=== PATIENT | male | born 1930 | race Caucasian/White ===

== ENCOUNTER 2016-08-17 18:44 | Emergency (ER) | payer BC ==
[2016-08-17 18:51] VITALS: BP 128/79; PULSE 99; TEMP 98.4; BMI 22.8
--- NOTE | 2016-08-17 19:15 | PDOC ---
History of Present Illness - General History Source: Patient Exam Limitations: No Limitations - History of Present Illness Initial Comments: 08/17/16 19:35 The patient is a 86 year old male, with a significant past medical history of asthma, prostate cancer, Afib, COPD, enlarged scrotum (long history of scrotal hernia), who presents to the emergency department with redness and swelling to his right elbow. The patient reports that there has been no recent trauma or injury to the area. He states that this redness and swelling began a week ago and that today the area came to a head and he was able to pop it and squeeze out some blood and pus. He reports that the area is not painful, but that he does feel a pressure sensation there. He denies fever, chills, chest pain, shortness of breath, headache and dizziness. He denies nausea, vomit, diarrhea and constipation. Allergies: None Past surgical history: Lung surgery, knee surgery Social history: Former smoker <Yun Coyne - Last Filed: 08/17/16 20:54> <Chrystal Reed - Last Filed: 08/18/16 03:13> - General Chief Complaint: Wound Stated Complaint: RT ELBOW WOUND Time Seen by Provider: 08/17/16 19:13 Past History <Yun Coyne - Last Filed: 08/17/16 20:54> - Past Medical History Asthma: Yes Cancer: Yes (prostate) Cardiac Disorders: Yes (Afib) CVA: No COPD: Yes CHF: No Dementia: No Diabetes: No GI Disorders: No Disorders: No HTN: No Hypercholesterolemia: No Liver Disease: No Seizures: No Thyroid Disease: No - Surgical History Abdominal Surgery: No Appendectomy: No Cardiac Surgery: No Cholecystectomy: No Lung Surgery: Yes Neurologic Surgery: No Orthopedic Surgery: (knee lt) - Immunization History Td Vaccination: No Immunization Up to Date: Yes - Psycho/Social/Smoking Cessation Hx Anxiety: No Suicidal Ideation: No Smoking Status: No Smoking History: Never smoked Have you smoked in the past 12 months: No Number of Cigarettes Smoked Daily: 0 Information on smoking cessation initiated: No Hx Alcohol Use: No Drug/Substance Use Hx: No Substance Use Type: None Hx Substance Use Treatment: No <Chrystal Reed - Last Filed: 08/18/16 03:13> - Past Medical History Allergies/Adverse Reactions: Allergies Allergy/AdvReac Type Severity Reaction Status Date / Time No Known Allergies Allergy Verified 08/17/16 18:45 Home Medications: Ambulatory Orders Cilostazol 100 mg PO DAILY 11/07/13 Famotidine [Pepcid -] 40 mg PO DAILY 11/07/13 Montelukast Na [Singulair -] 10 mg PO HS 11/07/13 Salmeterol/Fluticasone [Advair 250Mcg/50Mcg -] 1 inh PO BID 11/07/13 Simvastatin [Zocor -] 20 mg PO HS 11/07/13 Warfarin Sodium [Coumadin] 5 mg PO DAILY 11/07/13 Digoxin [Lanoxin -] 0.25 mg PO DAILY #30 tablet 11/14/13 Tramadol HCl/Acetaminophen [Ultracet Tablet] 1 each PO TID PRN #20 tablet MDD 3 tabs 12/03/15 Clindamycin HCl [Cleocin HCl] 300 mg PO QID #28 capsule 08/17/16 Diltiazem Cd [Cardizem Cd -] 90 mg PO BID 08/17/16 Review of Systems - Review of Systems Able to Perform ROS?: Yes Comments:: 08/17/16 19:36 CONSTITUTIONAL: Absent: fever, no chills, no fatigue EYES: Absent: visual changes ENT: Absent: ear pain, no sore throat CARDIOVASCULAR: Absent: chest pain, no palpitations RESPIRATORY: Absent: cough, no SOB GI: Absent: abdominal pain, no nausea, no vomiting, no constipation, no diarrhea GENITOURINARY: Absent: dysuria, no frequency, no hematuria MUSCULOSKELETAL: +Right elbow redness and swelling Absent: back pain SKIN: Absent: rash <DorethaYun - Last Filed: 08/17/16 20:54> *Physical Exam - Vital Signs Last Vital Signs Temp Pulse Resp BP Pulse Ox 98.4 F 99 H 20 128/79 95 08/17/16 18:44 08/17/16 18:44 08/17/16 18:44 08/17/16 18:44 08/17/16 18:44 - Physical Exam Comments: 08/17/16 19:36 GENERAL: The patient is awake, alert, and fully oriented, in no acute distress. HEAD: Normal with no signs of trauma. EYES: Pupils equal, round and reactive to light, extraocular movements intact, sclera anicteric, conjunctiva clear with no pallor. ENT: Ears normal, nares patent, oropharynx clear without exudates. Moist mucous membranes. NECK: Normal range of motion, supple without lymphadenopathy, JVD, or masses. LUNGS: Breath sounds equal, clear to auscultation bilaterally. No wheeze/ crackles. HEART: Regular rate and rhythm, normal S1 and S2 without murmur or rub. ABDOMEN: Soft/nontender/nondistended. BS wnl. No guarding or rebound. No palpable masses. No hepatosplenomegaly. EXTREMITIES: +2cm by 3cm firm and mildly tender area of erythema and edema of the proximal right forearm, volar surface. Non fluctuant. No lymphangitic streaking, no pain with passive or active range of motion. NEUROLOGICAL: Cranial nerves II through XII grossly intact. Normal speech, normal gait. PSYCH: Normal mood, normal affect. SKIN: Warm, Dry, normal turgor, no rashes or lesions noted. <Yun Coyne - Last Filed: 08/17/16 20:54> - Vital Signs Last Vital Signs Temp Pulse Resp BP Pulse Ox 98.4 F 99 H 20 128/79 95 08/17/16 18:44 08/17/16 18:44 08/17/16 18:44 08/17/16 18:44 08/17/16 18:44 <Chrystal Reed - Last Filed: 08/18/16 03:13> Procedures - Incision and Drainage I&D Site: Right: Arm Betadine cleansed: No (Hibiclens/ethanol) Anesthesia: 1% Lidocaine Volume(ml): 1 Blade Size: 11 Attempts: 1 Plain Packing: Yes (02/12 in) Complications: none Dressing: Yes (dry sterile gauze) Progress: Area was cleansed with Hibiclens/ethanol and sterilely draped 1.5 mL of 1% lidocaine infiltrated for local anesthesia. 1.5 cm incision made with #11 blade. Small amount of purulent discharge obtained followed by moderate serosanguineous drainage. Sample sent for culture and sensitivity. Forceps use to fully explore subcutaneous abscess cavity. No loculations or persistent pus present. Cavity irrigated with 60 mL of sterile normal saline. Wound packed with quarter inch plain packing. Sterile dry 4 x 4 gauze used for outer dressing. Patient tolerated procedure well. <Chrystal Reed - Last Filed: 08/18/16 03:13> Medical Decision Making - Medical Decision Making Documentation has been prepared under my direction and personally reviewed by me in its entirety. I attest that this documented accurately reflects all work, treatment, procedures and medical decision making performed by me. As noted above, this 86-year-old man with a history of skin abscesses in the past, presents with several day progressive swelling and discomfort in area of his proximal right forearm (volar surface). Patient clearly denies fever/ chills or excessive pain in the area. Today, after the patient attempted self drainage of the lesion, he has had an increase in erythema and edema around the area. Exam as noted. Incision and drainage procedure as noted above. Patient tolerated procedure well. Patient stated adamantly that he would not consent to admission 1 dose of antibiotic administered intravenously was strongly recommended. Patient asked if this was "medically necessary". When told that it was not medically necessary but strongly advised, the patient did not consent to dose of intravenous antibiotic. Patient given first dose of clindamycin 300 mg by mouth here in the emergency room. Clindamycin 300 mg 4 times a day prescribed for one week. Patient should keep dressing intact and follow-up in [address] Yoon for wound check and packing removal. The patient should return to the emergency room immediately if he develops fever /chills or increase in swelling/pain/redness in the area <Chrystal Reed - Last Filed: 08/18/16 03:13> *DC/Admit/Observation/Transfer - Attestations Scribe Attestion: 08/17/16 19:36 Documentation prepared by NICKI David, acting as medical affairs director for Chrystal Reed MD. <Yun Coyne - Last Filed: 08/17/16 20:54> <Chrystal Reed - Last Filed: 08/18/16 03:13> Diagnosis at time of Disposition: Cellulitis and abscess of upper arm and forearm - Discharge Dispostion Disposition: HOME Condition at time of disposition: Stable - Prescriptions Prescriptions: Clindamycin HCl [Cleocin HCl] 300 mg PO QID #28 capsule - Referrals Referrals: Maria Elena Yoon MD [Staff Physician] - 2 Days - Patient Instructions Printed Discharge Instructions: DI for Incision and Drainage of a Skin Abscess , DI for Cellulitis -- Adult Additional Instructions: Elevate right arm tonight Keep bandage in place Follow-up for wound check and packing removal with Dr. Robb Romero on August 19 Clindamycin 300 mg every 6 hours for one week Return to ER immediately if you have worsening redness/swelling/pain or if you develop fever
[2016-08-17] MEDS ORDERED: CLINDAMYCIN HCL 300 MG CAPSULE PO ONE (20:33)
[2016-08-17] MEDS ORDERED: CLINDAMYCIN HCL 150 MG CAPSULE (FP) ONE (20:40)
== END 2016-08-17 20:53 | disposition home or self-care (01) ==
LOC: FER 18:44
PROC: 0H9BXZZ Drainage of Right Upper Arm Skin, External Approach (ICD-10-PCS; principal; 2016-08-17)
DX: L03.113 Cellulitis of right upper limb (principal); L02.413 Cutaneous abscess of right upper limb
CPT/HCPCS: 87070; 87186; 87205; 99281-25

== ENCOUNTER 2016-08-19 15:05 | Inpatient (IN) | payer BC ==
[2016-08-19 15:15] VITALS: BMI 22.8
--- NOTE | 2016-08-19 15:43 | PDOC ---
Attending Attestation - Resident Resident Name: Flora Draper - ED Attending Attestation I have performed the following: I have examined & evaluated the patient, The case was reviewed & discussed with the resident, I agree w/resident's findings & plan, Exceptions are as noted - HPI HPI: 86 yo M s/p I&D of R elbow abscess 2 days ago presents for wound check. He states that he has been taking clindamycin as prescribed. He also states that on his prior ED visit, IV antibiotics were advised, however, he declined and decided to take antibiotics at home. He states that the swelling has been going up and down, but today in particular, he noticed that his hand started to swell. He has not disturbed the original dressing. Denies fever. 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 - Physicial Exam PE: GENERAL: Awake, alert, and fully oriented, in no acute distress HEAD: No signs of trauma EYES: PERRLA, EOMI, sclera anicteric, conjunctiva clear ENT: Auricles normal inspection, hearing grossly normal, nares patent, oropharynx clear without exudates. Moist mucosa NECK: Normal ROM, supple, no lymphadenopathy, JVD, or masses LUNGS: Breath sounds equal, clear to auscultation bilaterally. No wheezes, and no crackles HEART: Regular rate and rhythm, normal S1 and S2, no murmurs, rubs or gallops ABDOMEN: Soft, nontender, normoactive bowel sounds. No guarding, no rebound. No masses EXTREMITIES: R elbow dressing removed- with induration and erythema. Packing removed, with pus on the packing. No further drainage was expressed from the wound. +Lymphatic streaking to the hand, and into the upper arm. +Healing lesion to R upper arm, posterior surface. Remainder of extremities with normal range of motion, no edema. No clubbing or cyanosis. No cords, erythema, or tenderness NEUROLOGICAL: Cranial nerves II through XII grossly intact. Normal speech, normal gait SKIN: Warm, Dry, normal turgor, no rashes or lesions noted. - Medical Decision Making Initial wound culture shows MSSA. Sensitivities are not back yet. Given that his redness and swelling has worsened despite clinda, I recommended IV abx at this time. Patient agrees to inpatient admission. Will contact his PMD for admission.
--- NOTE | 2016-08-19 16:24 | PDOC ---
History of Present Illness <Guera Ríos - Last Filed: 08/19/16 17:16> - General History Source: Patient Exam Limitations: No Limitations - History of Present Illness Initial Comments: 08/19/16 16:29 This is an 86 yo male with h/o abscesses who presents for wound check and packing removal 2 days s/p incision and drainage of a right forearm abscess. He has no complaints initially, but on probing questions he reveals that there is new swelling in his right hand and worsened redness throughout his right forearm and hand. He notes that the swelling immediately over the area that was incised has improved since yesterday. He denies any right elbow or wrist pain or decreased ROM, and denies fever, chills, nausea, vomiting, difficulty breathing, chest pain, numbness, tingling, or focal weakness. He has been taking Clindamycin at home as prescribed. Wound cultures were taken of the purulent fluid at the time of I&D, and the preliminary read shows MSSA, but sensitivities have not resulted yet. <Flora Draper - Last Filed: 08/19/16 18:26> - General Chief Complaint: Revisit,Wound Recheck Stated Complaint: RT ARM WOUND CHECK Time Seen by Provider: 08/19/16 15:09 Past History - Past Medical History Other medical history: CKD <Guera Ríos - Last Filed: 08/19/16 17:16> - Past Medical History Asthma: Yes Cancer: Yes (prostate) Cardiac Disorders: Yes (Afib) CVA: No COPD: Yes CHF: No Dementia: No Diabetes: No GI Disorders: No Disorders: No HTN: No Hypercholesterolemia: No Liver Disease: No Seizures: No Thyroid Disease: No - Surgical History Abdominal Surgery: No Appendectomy: No Cardiac Surgery: No Cholecystectomy: No Lung Surgery: Yes Neurologic Surgery: No Orthopedic Surgery: (knee lt) - Immunization History Td Vaccination: No Immunization Up to Date: Yes - Psycho/Social/Smoking Cessation Hx Anxiety: No Suicidal Ideation: No Smoking Status: No Smoking History: Unknown if ever smoked Have you smoked in the past 12 months: No Number of Cigarettes Smoked Daily: 0 Information on smoking cessation initiated: No Hx Alcohol Use: No Drug/Substance Use Hx: No Substance Use Type: None Hx Substance Use Treatment: No <BonnyFlora - Last Filed: 08/19/16 18:26> - Past Medical History Allergies/Adverse Reactions: Allergies Allergy/AdvReac Type Severity Reaction Status Date / Time No Known Allergies Allergy Verified 08/17/16 18:45 Home Medications: Ambulatory Orders Cilostazol 100 mg PO DAILY 11/07/13 Simvastatin [Zocor -] 20 mg PO HS 11/07/13 Warfarin Sodium [Coumadin] 5 mg PO DAILY 11/07/13 Clindamycin HCl [Cleocin HCl] 300 mg PO QID #28 capsule 08/17/16 Diltiazem Cd [Cardizem Cd -] 90 mg PO BID 08/17/16 Budesonide/Formeterol Fumarate [SYMBICORT 160/4.5mcg -] 1 inh PO BID 08/19/16 Omeprazole 40 mg PO DAILY 08/19/16 Tiotropium Beauty [Spiriva] 1 inh IH DAILY 08/19/16 Review of Systems - Review of Systems Able to Perform ROS?: Yes Is the patient limited Azeri proficient: Yes Constitutional: No: Chills, Fever, Unexplained wgt Loss HEENTM: No: Nose Congestion, Throat Pain Respiratory: No: Cough, Shortness of Breath Cardiac (ROS): Yes: Edema (right hand, forearm, and arm). No: Chest Pain, Palpitations ABD/GI: No: Constipated, Diarrhea, Nausea, Vomiting : No: Burning, Dysuria Musculoskeletal: No: Back Pain, Neck Pain Integumentary: Yes: Erythema, Other (Abscess drainage of pus). No: Bruising Neurological: No: Headache, Numbness, Tingling, Weakness, Dizziness Endocrine: No: Unexplained Weight Gain, Unexplained Weight Loss <Flora Draper - Last Filed: 08/19/16 18:26> *Physical Exam - Vital Signs Last Vital Signs Temp Pulse Resp BP Pulse Ox 97.9 F 101 H 20 114/69 100 08/19/16 15:05 08/19/16 15:05 08/19/16 15:05 08/19/16 15:05 08/19/16 15:05 <Guera Ríos - Last Filed: 08/19/16 17:16> - Vital Signs Last Vital Signs Temp Pulse Resp BP Pulse Ox 97.9 F 101 H 20 114/69 100 08/19/16 15:05 08/19/16 15:05 08/19/16 15:05 08/19/16 15:05 08/19/16 15:05 - Physical Exam General Appearance: Yes: Nourished, Appropriately Dressed, Other (elderly pleasant male who is conversive and joking with staff members). No: Apparent Distress HEENT: positive: EOMI, Normal Voice, Hearing Grossly Normal. negative: Scleral Icterus (R), Scleral Icterus (L), Nasal Congestion Neck: positive: Trachea midline, Supple. negative: Tender, Rigid Respiratory/Chest: positive: Lungs Clear, Normal Breath Sounds. negative: Respiratory Distress, Crackles, Rhonchi, Stridor, Wheezing Cardiovascular: positive: Regular Rhythm, Regular Rate Gastrointestinal/Abdominal: positive: Normal Bowel Sounds, Soft. negative: Tender, Organomegaly, Pulsatile Mass, Guarding Musculoskeletal: positive: Other (Able to flex and extend at right elbow without pain or hesitation). negative: Decreased Range of Motion, Vertebral Tenderness Extremity: positive: Normal Capillary Refill, Normal Range of Motion, Tender ( right arm and forearm tenderness to palpation over indurated area extending from distal third of humerus to proximal third of forearm), Swelling (RUE with non-pitting edema extending from fingertips to mid-humerus), Erythema (RUE extending from distal forearm to mid-humerus). negative: Cyanosis Integumentary: positive: Normal Color, Dry, Warm, Erythema (right proximal forearm with previously incised abscess still open with packing in place and with active yellow purulent drainage, surrounding induration, also surrounding erythema and warmth which extend from mid-forearm to mid-humerus and are worse on the posteromedial aspect of the right arm. Overlying the distal one-third of the humerus on the posteromedial aspect there is a lesion which is 1x1cm and scabbed over which is a possible nidus for the infection), Rash. negative: Bruising Neurologic: positive: pension agent II-XII NML intact, Fully Oriented, Alert, Normal Mood/ Affect, Normal Response, Motor Strength 5/5 <Flora Draper - Last Filed: 08/19/16 18:26> ED Treatment Course - LABORATORY CBC & Chemistry Diagram: 08/19/16 16:00 08/19/16 16:00 - ADDITIONAL ORDERS Additional order review: Laboratory Results 08/19/16 16:00 Sodium 136 Potassium 3.6 Chloride 106 Carbon Dioxide 25 Anion Gap 5 L BUN 25 H D Creatinine 1.7 H Creat Clearance w eGFR 38.23 Random Glucose 140 H D Calcium 8.6 Total Bilirubin 0.6 AST 21 ALT 11 D Alkaline Phosphatase 71 Total Protein 5.8 L Albumin 3.2 L 08/19/16 16:00 RBC 4.55 MCV 84.0 MCHC 33.3 RDW 14.7 MPV 8.3 Neutrophils % 74.1 Lymphocytes % 8.6 D Monocytes % 11.3 H Eosinophils % 5.6 H D Basophils % 0.4 <Guera Ríos - Last Filed: 08/19/16 17:16> - LABORATORY CBC & Chemistry Diagram: 08/19/16 16:00 08/19/16 16:00 <Flora Draper - Last Filed: 08/19/16 18:26> Medical Decision Making - Medical Decision Making 08/19/16 16:49 86 yo male with worsening cellulitis surrounding a previously I&D'ed abscess. Abscess is still draining, packing in place, patient reports taking Clindamycin as prescribed. Examination notable for RUE swelling from fingertips to mid-humerus. Erythema and warmth surrounding abscess. ROM of elbow and wrist normal on the right, no pain. Most likely this is cellulitis associated with the RUE abscess. Less likely but considered on the ddx are lymphangitis, bacteremia, septic joint , or necrotizing soft tissue infection. Blood cultures, CBC, and CMP are drawn and empiric IV vancomycin is ordered. Admission to observation is ordered. <Flora Draper - Last Filed: 08/19/16 18:26> *DC/Admit/Observation/Transfer - Discharge Dispostion Admit: Yes <Guera Ríos - Last Filed: 08/19/16 17:16> - Discharge Dispostion Admit: Yes - Attestations Physician Attestion: 08/19/16 16:57 I, Dr. Flora Draper, attest that this document has been prepared under my direction and personally reviewed by me in its entirety. I further attest, that it accurately reflects all work, treatment, procedures and medical decision -making performed by me. <Flora Draper - Last Filed: 08/19/16 18:26> Diagnosis at time of Disposition: Cellulitis and abscess of upper arm and forearm - Discharge Dispostion Condition at time of disposition: Stable - Referrals Referrals: Maria Elena Yoon MD [Primary Care Provider] -
[2016-08-19] MEDS ORDERED: VANCOMYCIN 1,000 MG VIAL (RESTRICTED TO ID ONLY) ONE (16:29)
[2016-08-19 16:46] LABS: BASOPHIL 0.4 % (0-2.0); EOSINOPHIL 5.6 % (0-4.5); MCHC 33.3 g/dl (32.0-35.9); MEAN PLT VOLUME 8.3 fl (7.5-11.1); NEUTROPHILS 74.1 % (42.8-82.8); PLATELET COUNT 286 K/MM3 (134-434); RDW 14.7 % (11.9-15.9); WHITE BLOOD COUNT 9.4 K/mm3 (4.0-10.8)
[2016-08-19 16:57] LABS: ALBUMIN 3.2 g/dl (3.5-5.0); ALK PHOS 71 U/L (32-92); ANION GAP 5 (8-16); BILIRUBIN,TOTAL 0.6 mg/dl (0.2-1.0); CALCIUM 8.6 mg/dl (8.4-10.2); CO2 25 mmol/L (22-28); CREATININE 1.7 mg/dl (0.6-1.3); GLUCOSE,RANDOM 140 mg/dl (74-106); SGOT/AST 21 U/L (10-42); SGPT/ALT 11 U/L (10-40); TOT PROT 5.8 g/dl (6.4-8.3)
[2016-08-19] MEDS ORDERED: VANCOMYCIN 1,000 MG in DEXTROSE 5%-WATER - 250 ML IVPB ONE (17:57)
[2016-08-19] MEDS ORDERED: SODIUM CHLORIDE 1,000 ML IV SCH (18:45)
[2016-08-19] MEDS ORDERED: ACETAMINOPHEN 325 MG TABLET (FP) PO PRN (18:46)
[2016-08-19] MEDS ORDERED: oxyCODONE HCL 5 MG TABLET PO PRN (18:46)
--- NOTE | 2016-08-19 19:28 | HP ---
CHIEF COMPLAINT: Wound Check, Increased swelling and redness to right hand PCP: Dr. Brantley HISTORY OF PRESENT ILLNESS: This is a 86 y/o male with history of abscess. Who presents to the ED for a wound check and packing removal 2 days s/p incision and drainage of a right forearm abscess. Patient reports swelling and redness to his right hand. Patient had been advised to be admitted for IV antibiotics, but declined. He has been taking Clindamycin at home as prescribed. Patient denies any right elbow or wrist pain or decreased ROM. He denies fever, chills, nausea, vomiting , difficulty breathing, chest pain, numbness, tingling, or focal weakness. ER course was notable for: (1) no leukocytosis, afebrile (2) BUN 25, Cr 1.7 (3) Glucose 140 Recent Travel: None PAST MEDICAL HISTORY: Afib COPD CKD Prostate Ca (radiation therapy) PAST SURGICAL HISTORY: L- Knee Social History: Smoking: Former Alcohol: None Drugs: None Family History: Allergies No Known Allergies Allergy (Verified 08/17/16 18:45) HOME MEDICATIONS: Home Medications Medication Instructions Recorded Cilostazol 100 mg PO DAILY 11/07/13 Simvastatin [Zocor -] 20 mg PO HS 11/07/13 Warfarin Sodium [Coumadin] 5 mg PO DAILY 11/07/13 Clindamycin HCl [Cleocin HCl] 300 mg PO QID #28 capsule 08/17/16 Diltiazem Cd [Cardizem Cd -] 90 mg PO BID 08/17/16 Budesonide/Formeterol Fumarate 1 inh PO BID 08/19/16 [SYMBICORT 160/4.5mcg -] Omeprazole 40 mg PO DAILY 08/19/16 Tiotropium [place] [Spiriva] 1 inh IH DAILY 08/19/16 REVIEW OF SYSTEMS CONSTITUTIONAL: Absent: fever, chills, diaphoresis, generalized weakness, malaise, loss of appetite, weight change HEENT: Absent: rhinorrhea, nasal congestion, throat pain, throat swelling, difficulty swallowing, mouth swelling, ear pain, eye pain, visual changes CARDIOVASCULAR: Absent: chest pain, syncope, palpitations, irregular heart rate, lightheadedness , peripheral edema RESPIRATORY: Absent: cough, shortness of breath, dyspnea with exertion, orthopnea, wheezing, stridor, hemoptysis GASTROINTESTINAL: Absent: abdominal pain, abdominal distension, nausea, vomiting, diarrhea, constipation, melena, hematochezia GENITOURINARY: Absent: dysuria, frequency, urgency, hesitancy, hematuria, flank pain, genital pain MUSCULOSKELETAL: joint swelling Absent: myalgia, arthralgia, back pain, neck pain SKIN: erythema Absent: rash, itching, pallor HEMATOLOGIC/IMMUNOLOGIC: Absent: easy bleeding, easy bruising, lymphadenopathy, frequent infections ENDOCRINE: Absent: unexplained weight gain, unexplained weight loss, heat intolerance, cold intolerance NEUROLOGIC: Absent: headache, focal weakness or paresthesias, dizziness, unsteady gait, seizure, mental status changes, bladder or bowel incontinence PSYCHIATRIC: Absent: anxiety, depression, suicidal or homicidal ideation, hallucinations. PHYSICAL EXAMINATION GENERAL: Awake, alert, and fully oriented, in no acute distress. HEAD: Normal with no signs of trauma. EYES: Pupils equal, round and reactive to light, extraocular movements intact, sclera anicteric, conjunctiva clear. No lid lag. EARS, NOSE, THROAT: Ears normal, nares patent, oropharynx clear without exudates. Moist mucous membranes. NECK: Normal range of motion, supple without lymphadenopathy, JVD, or masses. LUNGS: Breath sounds equal, clear to auscultation bilaterally. No wheezes, and no crackles. No accessory muscle use. HEART: Irregular rate and rhythm, normal S1 and S2 without murmur, rub or gallop. ABDOMEN: Soft, nontender, not distended, normoactive bowel sounds, no guarding, no rebound, no masses. No hepatomegaly or splenomegaly. MUSCULOSKELETAL: Normal range of motion at all joints. No bony deformities or tenderness. No CVA tenderness. UPPER EXTREMITIES: 2+ pulses, warm, well-perfused. No cyanosis. No clubbing. +1 r- hand- r-forearm peripheral edema. LOWER EXTREMITIES: 2+ pulses, warm, well-perfused. No calf tenderness. No peripheral edema. NEUROLOGICAL: Cranial nerves II-XII intact. Normal speech. Gait not observed. PSYCHIATRIC: Cooperative. Good eye contact. Appropriate mood and affect. SKIN: Warm, dry, normal turgor, no rashes. normal capillary refill + erythematous, indurated abscess, with serous sanguineous drainage to r- forearm. Laboratory Results - last 24 hr 08/19/16 08/19/16 16:00 16:00 WBC 9.4 RBC 4.55 Hgb 12.7 Hct 38.2 MCV 84.0 MCH 28.0 MCHC 33.3 RDW 14.7 Plt Count 286 D MPV 8.3 Neutrophils % 74.1 Lymphocytes % 8.6 D Monocytes % 11.3 H Eosinophils % 5.6 H D Basophils % 0.4 Sodium 136 Potassium 3.6 Chloride 106 Carbon Dioxide 25 Anion Gap 5 L BUN 25 H D Creatinine 1.7 H Creat Clearance w eGFR 38.23 Random Glucose 140 H D Calcium 8.6 Total Bilirubin 0.6 AST 21 ALT 11 D Alkaline Phosphatase 71 Total Protein 5.8 L Albumin 3.2 L ASSESSMENT/PLAN: This is a 86 y/o male with a PMHx of: Abscess, Afib, COPD, CKD, Prostate Ca ( Radiation Therapy).Admitted to [facility] for Abscess/Cellulitis of the R- Arm for further evaluation of their emergent condition. Problem 1. Cellulitis/Abscess Right Arm 2. Hyperglycemia 3. Afib 4. COPD 5. CKD 6. Prostate Ca Plan: 1. Cellulitis/Abscess of R- arm - Likely secondary to Failed Out Patient Therapy. - No leukocytosis, patient remains afebrile likely due to recent use of ABX - Blood Cultures-pending - Wound Cultures 08/17/16- preliminary read shows- MSSA, but sensitivities have not resulted yet - Given Vancomycin in ED, will continue - Appreciate ID Consult - Elevate extremity - Monitor CBC - Monitor vitals - Neuro checks 2. Hyperglycemia - Likely due to inflammatory process, vs infection - Continue to monitor BMP, treat accordingly 3. Afib - Continue Cardizem, Coumadin - Daily INRs - Hold Coumadin if INR > 3.0 - [id number] Score 2 4. COPD - Controlled - Continue Symbicort, Spiriva - Duonebs prn SOB 5. CKD - Cr 1.7, at baseline - Continue to monitor and treat accordingly 6. Prostate Ca - s/p Radiation Therapy, remission per patient - f/u with urology outpatient as indicated 7. FEN - Tolerates Po Fludis - Replete lytes prn - Low Na Diet 8. DVT Prophylaxis - OOB - SCDs - Heparin SQ Code Status: Full Code Dispo: Requires Inpatient Care Problem List - Problem (1) Cellulitis and abscess of upper arm and forearm Code(s): BEG3930 - (2) COPD (chronic obstructive pulmonary disease) Code(s): J44.9 - CHRONIC OBSTRUCTIVE PULMONARY DISEASE, UNSPECIFIED (3) Afib Code(s): I48.91 - UNSPECIFIED ATRIAL FIBRILLATION (4) CKD (chronic kidney disease) Code(s): N18.9 - CHRONIC KIDNEY DISEASE, UNSPECIFIED (5) H/O prostate cancer Code(s): Z85.46 - PERSONAL HISTORY OF MALIGNANT NEOPLASM OF PROSTATE (6) DVT prophylaxis Code(s): HLN1948 - Visit type - Emergency Visit Emergency Visit: Yes ED Registration Date: 08/19/16 Care time: The patient presented to the Emergency Department on the above date and was hospitalized for further evaluation of their emergent condition. - New Patient This patient is new to me today: Yes Date on this admission: 08/19/16 - Critical Care Critical Care patient: No
[2016-08-19] MEDS: ATORVASTATIN CA 20 MG TABLET (FP) PO SCH (22:00)
[2016-08-19] MEDS ORDERED: VANCOMYCIN 1,000 MG in DEXTROSE 5%-WATER - 250 ML IVPB SCH (22:00)
[2016-08-19] MEDS: PANTOPRAZOLE 20 MG TABLET (FP) PO SCH (22:00)
[2016-08-19] MEDS: ZOLPIDEM TARTRATE 5 MG TABLET PO PRN (23:00)
[2016-08-19] MEDS: BUDESONIDE/FORMETEROL FUMARATE 160/4.5 mcg INHALER IH SCH (23:46)
[2016-08-20] MEDS ORDERED: VANCOMYCIN 1 GRAM (PRE-DOCKED) 1,000 MG/250 ML BAG IVPB ONE (06:00)
--- NOTE | 2016-08-20 07:56 | PN ---
Physical Exam: SUBJECTIVE: Patient seen and examined, patient reports feeling well, denies any fever, reports improvement to the redness of the right arm. OBJECTIVE: patient is a 86 y/o male with a past medical history of afib, COPD, CKD, Prostate Ca (radiation therapy). Patient was admitted from the emergency department for right elbow cellulitis after failing outpatient therapy. Vital Signs Period Temp Pulse Resp BP Sys/Fernandez Pulse Ox Last 24 Hr 97.5 F-97.8 F 79-85 16-19 121-131/63-75 94-95 GENERAL: The patient is awake, alert, and fully oriented, in no acute distress. HEAD: Normal with no signs of trauma. EYES: PERRL, extraocular movements intact, sclera anicteric, conjunctiva clear. No ptosis. ENT: Ears normal, nares patent, oropharynx clear without exudates, moist mucous membranes. NECK: Trachea midline, full range of motion, supple. LUNGS: Breath sounds equal, clear to auscultation bilaterally, no wheezes, crackles to right base, , no accessory muscle use. HEART: Regular rate and rhythm, S1, S2 without murmur, rub or gallop. ABDOMEN: Soft, nontender, nondistended, normoactive bowel sounds, no guarding, no rebound, no hepatosplenomegaly, no masses. EXTREMITIES: 2+ pulses, warm, well-perfused, no edema. RIGHT UPPER EXTREMITY: 3CM of induration noted to the volar surface of the extremity with 4cm of erythema, not extending past markings, pt is able to flex and extend the elbow without any diffiuclty. NEUROLOGICAL: Cranial nerves II through XII grossly intact. Normal speech, gait not observed. PSYCH: Normal mood, normal affect. SKIN: Warm, dry, normal turgor, no rashes or lesions noted Active Medications Generic Name Dose Route Start Last Admin Trade Name Freq PRN Reason Stop Dose Admin Acetaminophen 650 mg 08/19/16 18:46 Tylenol - PO Q4H PRN PAIN LEVEL 1-5 Aclidinium [place] 1 puff 08/20/16 10:00 Tudorza - IH BID LEX Atorvastatin Calcium 20 mg 08/19/16 22:00 08/19/16 22:00 Lipitor - PO Not Given HS LEX Budesonide/Formoterol Fumarate 1 puff 08/19/16 22:00 08/19/16 23:46 Symbicort 160/4.5mcg - IH Not Given BID LEX Cilostazol 100 mg 08/20/16 10:00 Pletal - PO DAILY LEX Diltiazem HCl 90 mg 08/19/16 22:00 08/19/16 22:00 Cardizem Cd - PO Not Given BID LEX Sodium Chloride 1,000 mls @ 50 mls/hr 08/19/16 18:45 08/19/16 19:05 Normal Saline - IV 08/20/16 18:44 50 mls/hr ASDIR LEX Administration Vancomycin HCl 1,000 mg/ 250 mls @ 250 mls/hr 08/20/16 10:00 Dextrose IVPB BID [facility] Protocol Oxycodone HCl 5 mg 08/19/16 18:46 08/20/16 02:49 Roxicodone - PO 5 mg Q3H PRN Administration MODERATE PAIN Pantoprazole Sodium 20 mg 08/19/16 22:00 08/19/16 22:00 Protonix - PO Not Given HS [facility] Warfarin Sodium 5 mg 08/20/16 18:00 Coumadin - PO DAILY@1800 [facility] Zolpidem Tartrate 5 mg 08/19/16 23:16 08/19/16 23:00 Ambien - PO 5 mg HS PRN Administration INSOMNIA CBC WBC 8.9 K/mm3 (4.0-10.8) 08/20/16 08:16 RBC 4.45 M/mm3 (4.00-5.60) 08/20/16 08:16 Hgb 12.6 GM/dl (11.7-16.9) 08/20/16 08:16 Hct 36.9 % (35.4-49) 08/20/16 08:16 MCV 83.0 fl (80-96) 08/20/16 08:16 MCH 28.2 pg (25.7-33.7) 08/20/16 08:16 MCHC 34.0 g/dl (32.0-35.9) 08/20/16 08:16 RDW 14.2 % (11.9-15.9) 08/20/16 08:16 Plt Count 267 K/MM3 (134-434) 08/20/16 08:16 MPV 8.3 fl (7.5-11.1) 08/20/16 08:16 Neutrophils % 70.1 % (42.8-82.8) 08/20/16 08:16 Lymphocytes % 11.3 % (8-40) D 08/20/16 08:16 Monocytes % 10.7 % (3.8-10.2) H 08/20/16 08:16 Eosinophils % 7.6 % (0-4.5) H 08/20/16 08:16 Basophils % 0.3 % (0-2.0) 08/20/16 08:16 CMP Sodium 136 mmol/L (136-145) 08/20/16 08:16 Potassium 3.9 mmol/L (3.5-5.1) 08/20/16 08:16 Chloride 106 mmol/L (98-107) 08/20/16 08:16 Carbon Dioxide 23 mmol/L (22-28) 08/20/16 08:16 Anion Gap 7 (8-16) L 08/20/16 08:16 BUN 20 mg/dl (7-18) H 08/20/16 08:16 Creatinine 1.4 mg/dl (0.6-1.3) H 08/20/16 08:16 Creat Clearance w eGFR 38.23 (>60) 08/19/16 16:00 Random Glucose 131 mg/dl (74-106) H 08/20/16 08:16 Calcium 8.3 mg/dl (8.4-10.2) L 08/20/16 08:16 Total Bilirubin 0.6 mg/dl (0.2-1.0) 08/19/16 16:00 AST 21 U/L (10-42) 08/19/16 16:00 ALT 11 U/L (10-40) D 08/19/16 16:00 Alkaline Phosphatase 71 U/L (32-92) 08/19/16 16:00 Total Protein 5.8 g/dl (6.4-8.3) L 08/19/16 16:00 Albumin 3.2 g/dl (3.5-5.0) L 08/19/16 16:00 ASSESSMENT/PLAN: 1. Cellulitis/Abscess of R- arm - pt is s/p of right elbow abscess 08/17-->micro reviewed, + stap aureus pending 2nd organism, continue cefazolin, until final culture is obtained to narrow down abx . - f/u blood cultures - ID Consulted and followed - no leukocytosis pt is afebrile 2) Afib - Continue Cardizem, Coumadin - INR is > 3.0, hold coumadin repeat inr in am 3) COPD - no acute excerbation at this time - Continue Symbicort, Spiriva - Duonebs prn SOB 4) Acute on chronic kidney disease - likely secondary to hypovolemia, Cr 1.4 baseline 1.2 - Continue to monitor and treat accordingly 5) Prostate Ca - s/p Radiation Therapy, remission per patient - f/u with urology outpatient as indicated 6) FEN - Tolerates Po Fludis - Replete lytes prn0 - Low Na Diet 7). DVT Prophylaxis - OOB - SCDs Code Status: Full Code Dispo: Requires Inpatient Care Visit type - Emergency Visit Emergency Visit: Yes ED Registration Date: 08/19/16 Care time: The patient presented to the Emergency Department on the above date and was hospitalized for further evaluation of their emergent condition. - New Patient This patient is new to me today: Yes Date on this admission: 08/20/16 - Critical Care Critical Care patient: No - Discharge Referral Referred to [facility] Med P.C.: No
[2016-08-20 09:00] LABS: BASOPHIL 0.3 % (0-2.0); EOSINOPHIL 7.6 % (0-4.5); MCH 28.2 pg (25.7-33.7); MEAN PLT VOLUME 8.3 fl (7.5-11.1); NEUTROPHILS 70.1 % (42.8-82.8); PLATELET COUNT 267 K/MM3 (134-434); RDW 14.2 % (11.9-15.9); WHITE BLOOD COUNT 8.9 K/mm3 (4.0-10.8)
[2016-08-20 09:04] LABS: INR 4.99 (0.82-1.09)
[2016-08-20 09:07] LABS: ANION GAP 7 (8-16); CALCIUM 8.3 mg/dl (8.4-10.2); CO2 23 mmol/L (22-28); CREATININE 1.4 mg/dl (0.6-1.3); GLUCOSE,RANDOM 131 mg/dl (74-106)
[2016-08-20 09:17] LABS: PROTHROMBIN TIME (PATIENT) 54.1 SEC (10.2-13.0)
--- NOTE | 2016-08-20 09:45 | PN ---
Progress Note (short form) - Note Progress Note: ID Consult dictated Celulitis R UE S/P I&D R UE ST abscess Pending c/s empiric cefazolin
[2016-08-20] MEDS ORDERED: VANCOMYCIN 1,000 MG in DEXTROSE 5%-WATER - 250 ML IVPB SCH (10:00)
[2016-08-20] MEDS ORDERED: PT OWN MED DRAWER 7, Y5N ONE ×2 (10:02→21:03)
[2016-08-20] MEDS: BUDESONIDE/FORMETEROL FUMARATE 160/4.5 mcg INHALER IH SCH ×2 (10:16→21:08)
[2016-08-20] MEDS: ACLIDINIUM BROMIDE 400 MCG/INH AERO.POWD IH SCH ×2 (10:16→21:08)
[2016-08-20] MEDS: CEFAZOLIN 1 GM/D5W 50 ML IVPB SCH ×2 (10:16→17:34)
[2016-08-20] MEDS: CILOSTAZOL 100 MG TABLET PO SCH (10:16)
[2016-08-20] MEDS: dilTIAZem HCL 30 MG TABLET (FP) PO SCH ×2 (10:17→21:07)
--- NOTE | 2016-08-20 10:41 | CONS ---
INFECTIOUS DISEASE CONSULTATION DATE OF CONSULTATION: DATE OF DICTATION: 08/20/2016 The patient is an 86-year-old male who is evaluated for cellulitis of the right upper extremity. The patient had presented to the emergency room on August 17, 2016, with a 1-week history of worsening right upper extremity erythema, warmth, and swelling. He had developed a localized area of swelling, from which he attempted to express pus. He presented to the emergency room and was diagnosed with a right forearm abscess, and incision and drainage was performed. He was empirically treated with clindamycin and discharged home. He returns with worsening erythema, warmth, and swelling of the right upper extremity and now swelling of the right hand. Wound culture obtained on August 17 is now growing a methicillin-sensitive Staphylococcus aureus and a gram negative. He denies any traumatic injury to his upper extremity. No insect or animal bite described. He has no fever or chills. PAST MEDICAL HISTORY: Positive for atrial fibrillation, COPD, chronic kidney disease, prostate cancer. PAST SURGICAL HISTORY: Status post right knee surgery. ALLERGIES: No known allergies. MEDICATIONS: Include clindamycin, Zocor, Coumadin, Cardizem, Symbicort, omeprazole, and Spiriva. SOCIAL HISTORY: Former smoker, lives at home. SYSTEMS REVIEW: Neurologic: No loss of consciousness, seizure activity, focal weakness. Cardiac: Negative chest pain or palpitations. Respiratory: Negative cough or sputum production. Gastrointestinal: Negative vomiting or diarrhea. Genitourinary: Negative for urinary tract infection. LABORATORY DATA: White count 8.9, hematocrit 36.9, platelet count 267, BUN 25, creatinine 1.7. Blood culture is pending. Wound culture growing methicillin-sensitive Staphylococcus aureus and a gram negative. PHYSICAL EXAMINATION: General: He is awake and alert. He is not acutely toxic appearing, out of bed to chair. Vital Signs: Temperature 97.5; blood pressure 131/75; pulse 85, regular; respirations 19 per minute. HEENT: Sclerae were anicteric. Heart: Sounds S1, S2. Lungs: Clear. Abdomen: Soft. No tenderness elicited. No mass, rebound, or rigidity. Right Upper Extremity: There is an incisional wound present in the proximal forearm. There is no expressible pus. There is erythema involving the proximal forearm and distal upper extremity. There is swelling over the olecranon bursa. However, there is no fluctuance or expressible pus. No lymphangitic streaking. No axillary adenopathy. IMPRESSION: 1. Cellulitis of the right upper extremity. 2. Status post incision and drainage of right upper extremity soft tissue abscess. 3. Chronic kidney disease. Await wound and blood culture results. Empiric antibiotic coverage with cefazolin 1 g IV piggyback every 8 hours in conjunction with elevation and local wound care. I will follow. Thank you for the kind referral. VILMA STAFFORD M.D. [id number]
[2016-08-20] MEDS ORDERED: WARFARIN NA 5 MG TABLET (UD) PO SCH (18:00)
[2016-08-20] MEDS: ATORVASTATIN CA 20 MG TABLET (FP) PO SCH (21:08)
[2016-08-20] MEDS: PANTOPRAZOLE 20 MG TABLET (FP) PO SCH (21:08)
[2016-08-20] MEDS: ZOLPIDEM TARTRATE 5 MG TABLET PO PRN (23:43)
[2016-08-21] MEDS: CEFAZOLIN 1 GM/D5W 50 ML IVPB SCH ×2 (02:55→09:13)
[2016-08-21 05:48] VITALS: BP 154/87; PULSE 102; TEMP 98.6
--- NOTE | 2016-08-21 07:50 | DS ---
Physical Exam: SUBJECTIVE: Patient seen and examined, patient reports feeling better, ambulatory throughout nursing station, denies any chest pain or shortness of breath. OBJECTIVE: patient is a 86 y/o male with history of abscess. Who presents to the ED for a wound check and packing removal 2 days s/p incision and drainage of a right forearm abscess. Patient reports swelling and redness to his right hand. Patient had been advised to be admitted for IV antibiotics, but declined. He has been taking Clindamycin at home as prescribed. Patient denies any right elbow or wrist pain or decreased ROM. He denies fever, chills, nausea, vomiting , difficulty breathing, chest pain, numbness, tingling, or focal weakness. ER course was notable for: (1) no leukocytosis, afebrile (2) Vital Signs Period Temp Pulse Resp BP Sys/Fernandez Pulse Ox Last 24 Hr 97.7 F-98.6 F 80-103 16-20 113-154/77-88 91-95 PHYSICAL EXAM GENERAL: The patient is awake, alert, and fully oriented, in no acute distress. HEAD: Normal with no signs of trauma. EYES: PERRL, extraocular movements intact, sclera anicteric, conjunctiva clear. No ptosis. ENT: Ears normal, nares patent, oropharynx clear without exudates, moist mucous membranes. NECK: Trachea midline, full range of motion, supple. LUNGS: Breath sounds equal, clear to auscultation bilaterally, no wheezes, crackles to right base, , no accessory muscle use. HEART: Regular rate and rhythm, S1, S2 without murmur, rub or gallop. ABDOMEN: Soft, nontender, nondistended, normoactive bowel sounds, no guarding, no rebound, no hepatosplenomegaly, no masses. EXTREMITIES: 2+ pulses, warm, well-perfused, no edema. RIGHT UPPER EXTREMITY: 3CM of induration noted to the volar surface of the extremity with 4cm of erythema, not extending past markings, pt is able to flex and extend the elbow without any diffiuclty. NEUROLOGICAL: Cranial nerves II through XII grossly intact. Normal speech, gait not observed. PSYCH: Normal mood, normal affect. SKIN: Warm, dry, normal turgor, no rashes or lesions noted LABS Laboratory Results - last 24 hr 08/20/16 08/20/16 08/20/16 08:16 08:16 08:16 WBC 8.9 RBC 4.45 Hgb 12.6 Hct 36.9 MCV 83.0 MCH 28.2 MCHC 34.0 RDW 14.2 Plt Count 267 MPV 8.3 Neutrophils % 70.1 Lymphocytes % 11.3 D Monocytes % 10.7 H Eosinophils % 7.6 H Basophils % 0.3 INR 4.99 H* D Sodium 136 Potassium 3.9 Chloride 106 Carbon Dioxide 23 Anion Gap 7 L BUN 20 H Creatinine 1.4 H Random Glucose 131 H Calcium 8.3 L Microbiology 08/19/16 16:00 Blood - Peripheral Venous Blood Culture - Preliminary NO GROWTH OBTAINED AFTER 24 HOURS, INCUBATION TO CONTINUE FOR 4 DAYS. 08/19/16 16:00 Blood - Peripheral Venous Blood Culture - Preliminary NO GROWTH OBTAINED AFTER 24 HOURS, INCUBATION TO CONTINUE FOR 4 DAYS. HOSPITAL COURSE: Patient is 86 y/o male that was admitted from the emergency department for Cellulitis/Abscess of R- arm. Patient is s/p of right elbow abscess 08/17. Microbiology from 08/17 reviewed, + stap aureus pending 2nd organism. Patient given vancomycin for 24 hours and cefazolin for [address] Vargas, ID physician was consulted and followed. Blood cultures are negative to date. Patient remained afebrile and no leukocytosis was noted throughout admission. Patient has a past medical history of afib, rate controlled. Cardizem was continued throughout admission. INR is > 3.0, coumadin was held. repeat inr 3.4 , hold coumadin today. patient has a past medical history of COPD. no acute excerbation at this time, Symbicort and Spiriva was continued throughout hospitalization. Admission was notable for acute on chronic kidney disease, likely secondary to hypovolemia, Cr 1.4 baseline 1.2. PLAN * hold coumadin today, start coumadin tomm 4mg, repeat inr on 08/25/16, * continue keflex daily * follow up with Dr Brantley on 08/25/16 * return precautions reviewed, ie chest pain, shortness of breath, fever. Date of Admission:08/19/16 Date of Discharge: 08/21/16 Minutes to complete discharge: 45 Discharge Summary Reason For Visit: CELLULITIS AND ABSCESS RIGHT ARM AND FOREARM Current Active Problems Afib (Acute) CKD (chronic kidney disease) (Acute) COPD (chronic obstructive pulmonary disease) (Acute) Cellulitis and abscess of upper arm and forearm (Acute) DVT prophylaxis (Acute) H/O prostate cancer (Acute) Condition: Improved - Instructions Diet, Activity, Other Instructions: resume regular low sodium diet continue taking keflex as prescribed hold coumadin tonight, restart coumadin tomm (08/22) at 4mg, repeat INR on Thursday , August 25 if fever, chest pain or shortness of breath, or if redness or swelling worsens please return to the emergency department. Referrals: Emre Vargas MD [Staff Physician] - Maria Elena Yoon MD [Primary Care Provider] - Disposition: HOME - Home Medications Comprehensive Discharge Medication List: Ambulatory Orders Cilostazol 100 mg PO DAILY 11/07/13 Simvastatin [Zocor -] 20 mg PO HS 11/07/13 Warfarin Sodium [Coumadin] 5 mg PO DAILY 11/07/13 Clindamycin HCl [Cleocin HCl] 300 mg PO QID #28 capsule 08/17/16 Diltiazem Cd [Cardizem Cd -] 90 mg PO BID 08/17/16 Ambien 5 mg PRN 08/19/16 Budesonide/Formeterol Fumarate [SYMBICORT 160/4.5mcg -] 1 inh PO BID 08/19/16 Omeprazole 40 mg PO DAILY 08/19/16 Tiotropium [place] [Spiriva] 1 inh IH DAILY 08/19/16 This patient is new to me today: No Emergency Visit: Yes ED Registration Date: 08/19/16 Care time: The patient presented to the Emergency Department on the above date and was hospitalized for further evaluation of their emergent condition. Critical Care patient: No - Discharge Referral Referred to [facility] Med P.C.: Yes Physician Referral: Maria Elena Yoon MD ([facility])
--- NOTE | 2016-08-21 09:09 | PN ---
Progress Note, Physician History of Present Illness: Doing well No c/o R UE pain No fever/chills Tolerating antibiotic - Current Medication List Current Medications: Active Medications Acetaminophen (Tylenol -) 650 mg PO Q4H PRN PRN Reason: PAIN LEVEL 1-5 Aclidinium [place] (Tudorza -) 1 puff IH BID [facility] Last Admin: 08/20/16 21:08 Dose: 1 puff Atorvastatin Calcium (Lipitor -) 20 mg PO HS [facility] Last Admin: 08/20/16 21:08 Dose: 20 mg Budesonide/Formoterol Fumarate (Symbicort 160/4.5mcg -) 1 puff IH BID [facility] Last Admin: 08/20/16 21:08 Dose: 1 puff Cilostazol (Pletal -) 100 mg PO DAILY [facility] Last Admin: 08/20/16 10:16 Dose: 100 mg Diltiazem HCl (Cardizem -) 90 mg PO BID [facility] Last Admin: 08/20/16 21:07 Dose: 90 mg Cefazolin Sodium (Ancef 1 Gm Premixed Ivpb -) 50 mls @ 100 mls/hr IVPB Q8H-IV [facility] Last Admin: 08/21/16 02:55 Dose: 100 mls/hr Oxycodone HCl (Roxicodone -) 5 mg PO Q3H PRN PRN Reason: MODERATE PAIN Last Admin: 08/20/16 02:49 Dose: 5 mg Pantoprazole Sodium (Protonix -) 20 mg PO HS [facility] Last Admin: 08/20/16 21:08 Dose: 20 mg Warfarin Sodium (Coumadin -) 5 mg PO DAILY@1800 [facility] Zolpidem Tartrate (Ambien -) 5 mg PO HS PRN PRN Reason: INSOMNIA Last Admin: 08/20/16 23:43 Dose: 5 mg - Objective Vital Signs: Vital Signs Temperature 98.6 F 08/21/16 05:47 Pulse Rate 102 H 08/21/16 05:47 Respiratory Rate 16 08/21/16 05:47 Blood Pressure 154/87 08/21/16 05:47 O2 Sat by Pulse Oximetry (%) 93 L 08/21/16 05:47 Constitutional: Yes: No Distress Eyes: Yes: Conjunctiva Clear Cardiovascular: Yes: Regular Rate and Rhythm, S1, S2 Respiratory: Yes: CTA Bilaterally Gastrointestinal: Yes: Normal Bowel Sounds, Soft, Tenderness Extremities: Yes: Other (erythema/ warmth/ swelling R UE nearly all resolved) Labs: CBC, BMP 08/20/16 08:16 08/20/16 08:16 INR, PTT INR 4.99 (0.82-1.09) H* D 08/20/16 08:16 Assessment/Plan Cellulitis R UE S/P I&D R UE abscess MSSA, GNR Substitute keflex 500mg po q6h x7d Elevation, analgesics
[2016-08-21] MEDS ORDERED: PT OWN MED DRAWER 7, Y5N ONE (09:12)
[2016-08-21] MEDS: dilTIAZem HCL 30 MG TABLET (FP) PO SCH (09:13)
[2016-08-21] MEDS: BUDESONIDE/FORMETEROL FUMARATE 160/4.5 mcg INHALER IH SCH (09:13)
[2016-08-21] MEDS: CILOSTAZOL 100 MG TABLET PO SCH (09:13)
[2016-08-21] MEDS: ACLIDINIUM BROMIDE 400 MCG/INH AERO.POWD IH SCH (09:14)
[2016-08-21 09:42] LABS: INR 3.43 (0.82-1.09); PROTHROMBIN TIME (PATIENT) 37.5 SEC (10.2-13.0)
[2016-08-22] MEDS ORDERED: WARFARIN NA 5 MG TABLET (UD) PO SCH (18:00)
== END 2016-08-21 10:23 | disposition home or self-care (01) | DRG 603 ==
LOC: FER 15:05 → FM/S 18:50 → OBSVTOIN 19:33
PROVIDERS: ADMIT Internal Medicine; ATTEND Nurse Practitioner Family
DX: L02.413 Cutaneous abscess of right upper limb (principal); N17.9 Acute kidney failure, unspecified; L03.113 Cellulitis of right upper limb; B95.61 Methicillin susceptible Staphylococcus aureus infection as the cause of diseases classified elsewhere; J44.9 Chronic obstructive pulmonary disease, unspecified; I48.91 Unspecified atrial fibrillation; R73.9 Hyperglycemia, unspecified; Z79.01 Long term (current) use of anticoagulants; C61 Malignant neoplasm of prostate; N18.9 Chronic kidney disease, unspecified; E86.1 Hypovolemia
CPT/HCPCS: 36415; 80048; 80053; 84550; 85025; 85610; 87040; 99284-25; G0378